=== PATIENT | male | born 1990 | race Caucasian/White ===

== ENCOUNTER 2023-11-29 12:04 | Emergency (ER) | payer MEDICARE ==
[~2023-11-29] VITALS: Ht 170.2 cm; Wt 73.0 kg
[2023-11-29 12:09] VITALS: O2SAT 100
[2023-11-29] MEDS: DIPHENHYDRAMINE 50MG/ML VIAL IV ONE (13:02)
[2023-11-29] MEDS: METOCLOPRAMIDE HCL 10MG/2ML VIAL IV ONE (13:02)
[2023-11-29 13:05] LABS: BASOPHILS % 0.3 % (0.0-2.0); DIFFERENTIAL COMMENT 0; EOSINOPHILS % 0.8 % (0.0-5.0); HEMATOCRIT. 47.2 % (42.0-52.0); HEMOGLOBIN. 16.8 g/dL (14.0-18.0); MEAN CORPUSCULAR HEMOGLOBIN 30.4 pg (28.0-32.0); MEAN CORPUSCULAR HGB CONC 35.7 g/dL (31.0-37.0); MEAN CORPUSCULAR VOLUME 85.1 fL (80.0-94.0); MEAN PLATELET VOLUME 8.3 fl (7.4-10.4); MONOCYTES % 6.3 % (2.0-8.0); NEUTROPHILS % 75.6 % (40.0-76.0); PLATELET 163 x1000/uL (130-400); RED BLOOD CELL COUNT 5.55 mill/uL (4.7-6.1); RED CELL DISTRIBUTION WIDTH 12.6 % (11.6-14.6); WHITE BLOOD COUNT 7.5 x1000/uL (4.5-11.0)
[2023-11-29] MEDS: SODIUM CHLORIDE 0.9% 1,000 ML IV ONE ×2 (13:07)
[2023-11-29 13:14] LABS: ALANINE AMINOTRANSFERASE 9 IU/L (10-49); ALBUMIN 4.6 g/dL (3.2-4.8); ASPARTATE AMINOTRANSFERASE 15 IU/L (<34); CALCIUM 9.1 mg/dL (8.7-10.4); CARBON DIOXIDE 26 mEq/L (21-32); CHLORIDE 103 mEq/L (98-107); CREATININE 0.8 mg/dL (0.6-1.3); GLUCOSE 269 mg/dL (70-105); POTASSIUM 3.9 mEq/L (3.5-5.1); PROTEIN TOTAL 7.8 g/dL (6.0-8.3); SODIUM 136 mEq/L (136-145); UREA NITROGEN BLOOD 17 mg/dL (9-23)
[2023-11-29 13:36] LABS: BETA HYDROXYBUTYRATE 0.5 mMol/L (0.0-0.3)
[2023-11-29 15:31] VITALS: BP 128/71; PULSE 76; RESP 16; TEMP 98.4
== END 2023-11-29 15:34 | disposition home or self-care (01) ==
LOC: ER 12:04
DX: G43.909 Migraine, unspecified, not intractable, without status migrainosus (principal); E11.9 Type 2 diabetes mellitus without complications
CPT/HCPCS: 80053; 82010; 82962; 85025; 36415; 70450; 96361; 96374; 96375; 99285; J1200; J2765; J7030; Z7610 ×2